=== PATIENT | female | born 1960 | race Caucasian/White ===

== ENCOUNTER 2022-11-04 14:18 | Outpatient (OUT) | payer MEDICAID, SELFPAY ==
--- NOTE | 2022-11-04 14:20 | MM_ITS ---
Patient: ALPESH GANT Exam Date: 11/04/2022 : 1960 Gender:F Ordering : ALEXANDER JETT [facility] Admission #: [id number] Family : Order #: [id number] CLICK HERE TO VIEW EXAM RADIOLOGY REPORT PROCEDURE: MM TOMOSYNTHESIS SCREENING BI COMPARISON: MG MAMM SCREEN 3D DIMITRIOS CAD, 02/05/2021. MG MAMM DX 3D RT CAD, 10/12/2021. MAMMO POST BIOPSY RIGHT, 03/04/2021. MG STEREO CORE NDL W CLIP RT, 03/04/2021. MG MAMM RT DIAG FU, 02/20/2021. INDICATIONS: Screening mammogram Z12.31 Calculator Name NCI Breast Cancer Risk Assessment Tool 5 Year Breast Cancer Risk 4.00% Lifetime Breast Cancer Risk 16.20% Personal Breast Cancer No Personal Ovarian Cancer No Treatments None Family Cancers Mother with breast cancer at age 46; Grandmother-maternal with breast cancer at age 70. LOCATION: [facility] BREAST COMPOSITION: Heterogeneously dense,which may obscure small masses. FINDINGS: DIAGNOSTIC CATEGORY 2--BENIGN FINDING: RIGHT BREAST: Stable architectural distortion, scarring, and biopsy clip along with a few benign appearing scattered calcifications. No significant change has occurred. LEFT BREAST: Stable benign-appearing calcifications and postsurgical scarring lower-outer quadrant. No significant change has occurred. RECOMMENDATIONS: ROUTINE MAMMOGRAM AND CLINICAL EVALUATION IN 12 MONTHS. PLEASE NOTE: A NORMAL MAMMOGRAM DOES NOT EXCLUDE THE POSSIBILITY OF BREAST CANCER. A CLINICALLY SUSPICIOUS PALPABLE LUMP SHOULD BE BIOPSIED. Dictated by: Delvis Almonte M.D. on 11/04/2022 at 15:22 Approved by: Delvis Almonte M.D. on 11/04/2022 at 15:30
== END 2022-11-04 14:19 | disposition home or self-care (01) ==
LOC: MAMMO 14:18
PROVIDERS: PCP Nurse Practitioner Family; Visit Provider Nurse Practitioner Family
DX: Z12.31 Encounter for screening mammogram for malignant neoplasm of breast (principal); Z80.3 Family history of malignant neoplasm of breast
CPT/HCPCS: 77063; 77067

== ENCOUNTER 2023-11-07 13:02 | Outpatient (OUT) | payer MEDICARE, MEDICAID, SELFPAY ==
--- NOTE | 2023-11-07 13:07 | MM_ITS ---
Patient Name: ALPESH GANT MR#: [id number] : 1960 Exam Date: 11/07/2023 Ordering Doctor: ALEXANDER JETT CNP RADIOLOGY REPORT PROCEDURE: MM TOMOSYNTHESIS SCREENING BI COMPARISON: MM TOMOSYNTHESIS SCREENING BI, 11/04/2022. MG MAMM DX 3D RT CAD, 10/12/2021. INDICATIONS: Screening Calculator Name NCI Breast Cancer Risk Assessment Tool 5 Year Breast Cancer Risk 4.10% Lifetime Breast Cancer Risk 15.70% Personal Breast Cancer No Personal Ovarian Cancer No Treatments None Family Cancers Mother with breast cancer at age 46; Grandmother-maternal with breast cancer at age 70. LOCATION: [facility] BREAST COMPOSITION: The breasts are heterogeneously dense,which may obscure small masses. FINDINGS: DIAGNOSTIC CATEGORY 2--BENIGN FINDING. NO CHANGE FROM COMPARISON. Scattered benign-appearing calcifications are present. Scattered benign-appearing lymph nodes are present. RIGHT BREAST: No significant suspicious finding. Stable micro clip marker upper outer quadrant LEFT BREAST: No significant suspicious finding. RECOMMENDATIONS: ROUTINE MAMMOGRAM AND CLINICAL EVALUATION IN 12 MONTHS. PLEASE NOTE: A NORMAL MAMMOGRAM DOES NOT EXCLUDE THE POSSIBILITY OF BREAST CANCER. A CLINICALLY SUSPICIOUS PALPABLE LUMP SHOULD BE BIOPSIED. Dictated by: Bob Pritchard MD on 11/08/2023 at 07:40 Approved by: Bob Pritchard MD on 11/08/2023 at 07:47
== END 2023-11-07 13:03 | disposition home or self-care (01) ==
LOC: MAMMO 13:02
PROVIDERS: PCP Nurse Practitioner Family; Visit Provider Nurse Practitioner Family
DX: Z12.31 Encounter for screening mammogram for malignant neoplasm of breast (principal); Z80.3 Family history of malignant neoplasm of breast
CPT/HCPCS: 77063; 77067

== ENCOUNTER 2023-12-30 12:48 | Outpatient (OUT) | payer MEDICARE, MEDICAID, SELFPAY ==
--- NOTE | 2023-12-30 12:51 | US_ITS ---
The [address] [address] Patient Name: ALPESH GANT MRN: [id number] date: 1960 Sex: F Assigned Patient Location: US Current Patient Location: Accession/Order Number: [id number] Exam Date: 12/30/2023 12:52 Report Date: 12/30/2023 13:45 At the request of: ALEXANDER JETT Procedure: US venous doppler LE RT CLINICAL DATA: Right leg edema PROCEDURE: Right lower extremity venous duplex ultrasound. TECHNIQUE: Arauz-scale, color flow, and waveform spectral analysis was performed of the right lower extremity. FINDINGS: The right common femoral, profunda femoral, femoral, and popliteal veins were compressible. The saphenous vein was compressible. No venous thrombosis was seen. The veins fill with color Doppler. Augmentation was normal. US/US venous doppler LE RT IMPRESSION: 1. No acute lower extremity deep venous thrombosis. 2. No superficial venous thrombosis. Electronically authenticated by: Keiry DUNCAN Date: 12/30/2023 13:45
--- NOTE | 2023-12-30 12:52 | XR_ITS ---
The [address] [address] Patient Name: ALPESH GANT MRN: [id number] date: 1960 Sex: F Assigned Patient Location: Current Patient Location: Accession/Order Number: [id number] Exam Date: 12/30/2023 13:02 Report Date: 01/01/2024 07:02 At the request of: ALEXANDER JETT Procedure: XR ankle RT min 3V PROCEDURE: XR foot RT min 3V, XR ankle RT min 3V HISTORY: right foot pain COMPARISON: None. FINDINGS: BONES:No fracture, acute abnormality, or significant arthropathy. SOFT TISSUES:Soft tissue swelling surrounding the ankle and foot. EFFUSION:None visible. OTHER: Negative. XR/XR ankle RT min 3V IMPRESSION: 1. Soft tissue swelling of uncertain etiology. 2. No acute bone abnormality or significant degenerative changes. Electronically authenticated by: PIERRE VENCES Date: 01/01/2024 07:02
--- NOTE | 2023-12-30 12:52 | XR_ITS ---
The [address] [address] Patient Name: ALPESH GANT MRN: [id number] date: 1960 Sex: F Assigned Patient Location: Current Patient Location: Accession/Order Number: [id number] Exam Date: 12/30/2023 13:02 Report Date: 01/01/2024 07:02 At the request of: ALEXANDER JETT Procedure: XR foot RT min 3V PROCEDURE: XR foot RT min 3V, XR ankle RT min 3V HISTORY: right foot pain COMPARISON: None. FINDINGS: BONES:No fracture, acute abnormality, or significant arthropathy. SOFT TISSUES:Soft tissue swelling surrounding the ankle and foot. EFFUSION:None visible. OTHER: Negative. XR/XR foot RT min 3V IMPRESSION: 1. Soft tissue swelling of uncertain etiology. 2. No acute bone abnormality or significant degenerative changes. Electronically authenticated by: PIERRE VENCES Date: 01/01/2024 07:02
== END 2023-12-30 12:49 | disposition home or self-care (01) ==
LOC: US 12:48
PROVIDERS: PCP Nurse Practitioner Family; Visit Provider Nurse Practitioner Family
DX: R60.9 Edema, unspecified (principal); M25.571 Pain in right ankle and joints of right foot; R60.0 Localized edema
CPT/HCPCS: 73610; 73630; 93971

== ENCOUNTER 2024-11-21 10:14 | Outpatient (OUT) | payer MEDICARE, MEDICAID, SELFPAY ==
--- OUTSIDE RECORDS SUMMARY | 2024-11-21 10:16 | XMS_ITS | Clinical Summary ---
Author Organization [facility] Address [address] [place] [address] Care Team Providers Care Hiv Nurse Name Role Phone Shravan Mccrary MD Primary Care Provider [phone] Renetta Farley MD Unavailable [phone] 1 Allergies No known active allergies Medications methylPREDNISol one (Medrol Dospak) 4 MG tablets TAKE BY MOUTH DIRECTED ON PACKAGE; TAKE ONE-HALF DAILY DOSE BY MOUTH WITH BREAKFAST & TAKE THE OTHER HALF WITH DINNER 3 Active Family History Relation Name Status Comments Father Mother Social History Tobacco Use Types Packs/Day Years Used Date Smoking Tobacco: Every Day Cigarettes Smokeless Tobacco: Never Tobacco Cessation:Ready to Q uit: Not Asked; Counseling Given: Not Answered Alcohol Use Standard Drinks/Week Comments Not Currently 0 (1 standard drink = 0.6 oz pur e alcohol) Comments Unknown Sex and Gender Information Value Date Recorded Sex Assigned at Not on file Legal Sex Female 7:01 PM EDT Gender Identity Not on file Sexual Orientation Not on file Plan of Treatment Health Maintenance Due Date Last Done Comments CT Colonography 1960 Colonoscopy 1960 Colorectal Cancer Screening 1960 FIT-DNA 1960 FIT 1960 FOBT 1960 Sigmoidoscopy 1960 Mammogram 1998 Pneumococcal Vaccine: 65+ Years (1 of 1 - PCV) 009 Influenza Vaccine (#1) 2024 Insurance [facility]ICA[facility] [place] Care Teams Hiv Nurse Relationship Specialty Start Date End Date Shravan Mccrary MD PCP - General Family Medicine 08/25/22 Renetta Farley MD [address] [place] [id number] Referring Physician Family Medicine 08/25/22
--- NOTE | 2024-11-21 10:17 | MM_ITS ---
Patient Name: ALPESH GANT MR#: [id number] : 1960 Exam Date: 11/21/2024 Ordering Doctor: ALEXANDER JETT CNP RADIOLOGY REPORT PROCEDURE: MM TOMOSYNTHESIS SCREENING BI COMPARISON: MM TOMOSYNTHESIS SCREENING BI, 11/07/2023. MM TOMOSYNTHESIS SCREENING BI, 11/04/2022. MG MAMM DX 3D RT CAD, 10/12/2021. MG MAMM SCREEN 3D DIMITRIOS CAD, 02/05/2021. INDICATIONS: screening Calculator Name NCI Breast Cancer Risk Assessment Tool 5 Year Breast Cancer Risk 4.30% Lifetime Breast Cancer Risk 14.70% Personal Breast Cancer No Personal Ovarian Cancer No Treatments None Family Cancers Mother with breast cancer at age 46; Grandmother-maternal with breast cancer at age 70. LOCATION: [facility] BREAST COMPOSITION: The breasts are heterogeneously dense, which may obscure small masses. FINDINGS: RIGHT BREAST: No significant suspicious finding. Benign-appearing calcifications are present. LEFT BREAST: No significant suspicious finding. Benign-appearing calcifications are present. Benign-appearing lymph nodes are noted along chest wall. DIAGNOSTIC CATEGORY 2--BENIGN FINDING. NO CHANGE FROM COMPARISON. RECOMMENDATIONS: ROUTINE MAMMOGRAM AND CLINICAL EVALUATION IN 12 MONTHS. Dictated by: Prabhakar Parra MD on 11/21/2024 at 15:29 Approved by: Prabhakar Parra MD on 11/21/2024 at 15:31
--- OUTSIDE RECORDS SUMMARY | 2024-11-21 12:27 | XMS_ITS | CCD ---
Author Organization [facility] Care Team Providers Care Office Clinician Name Role Phone ALEXANDER JETT Admitting Unavailable RU, DR PIERRE Lomax Consulting Unavailable JOHNIE, ALEXANDER Attending Unavailable JOHNIE, ALEXANDER Primary Care Unavailable JOHNIE, ALEXANDER Consulting Unavailable WEST, DR FAY Merrill Consulting Unavailable JOHNIE, ALEXANDER Admitting Unavailable JOHNIE, ALEXANDER Attending Unavailable JOHNIE, ALEXANDER Primary Care Unavailable JOHNIE, ALEXANDER Consulting Unavailable ROSS, YANELY INOCENCIA Admitting Unavailable ROSS, YANELY PRO Attending Unavailable ROSS, YANELY INOCENCIA Consulting Unavailable JOHNIE, ALEXANDER Primary Care Unavailable JOHNIE, ALEXANDER Admitting Unavailable JOHNIE, ALEXANDER Attending Unavailable ZIEBER, DR PIERRE Lomax Consulting Unavailable JOHNIE, ALEXANDER Primary Care Unavailable JOHNIE, ALEXANDER Consulting Unavailable JOHNIE, ALEXANDER Attending Unavailable JOHNIE, ALEXANDER Primary Care Unavailable WEST, DR FAY Merrill Consulting Unavailable JOHNIE, ALEXANDER Admitting Unavailable JOHNIE, ALEXANDER Consulting Unavailable JOHNIE, ALEXANDER Admitting Unavailable WEST, DR FAY Merrill Consulting Unavailable JOHNIE, ALEXANDER Primary Care Unavailable JOHNIE, ALEXANDER Attending Unavailable JOHNIE, ALEXANDER Consulting Unavailable Problems Active Problems Problem Classification Problem Date Documented Date Episodic/Chronic Osteoarthritis (1 source) Bilateral primary osteoarthritis of knee; Translations: [BILATERAL PRIM OSTEOARTHRITIS KNEE] Onset: 01-21-2022 Chronic Other non-traumatic joint disorders (4 sources) Pain in right knee; Translations: [PAIN IN RIGHT KNEE] Onset: 01-18-2022 Episodic Other non-traumatic joint disorders (1 source) Pain in left knee; Translations: [PAIN IN LEFT KNEE] Onset: 01-21-2022 Episodic Past or Other Problems Problem Classification Problem Date Documented Da te Episodic/Chronic Immunizations and screening for infectious disease (4 sources) Encounter for immunization; Translations: [ENCOUNTER FOR IMMUNIZATION] Onset: 04-07-2021 Episodic Nonmalignant breast conditions (3 sources) Other benign mammary dysplasias of right breast; Translations: [Hypertrophy of breast] Onset: 03-12-2021 Episodic Other screening for suspected conditions (not mental disorders or infectious disease) (9 sources) Other abnormal and inconclusive findings on diagnostic imaging of breast; Translations: [Encounter for screening mammogram for malignant neoplasm of breast] Onset: 02-05-2021 Episodic Residual codes; unclassified (1 source) Family history of malignant neoplasm of breast; Translations: [FAMILY HX MALIG NEOPLASM OF BREAST] Onset: 02-14-2021 Episodic Results Test Name Value Interpretation Reference Range Facil ity XR KNEE DIMITRIOS 4V or >on 2021 XR KNEE DIMITRIOS 4V or > EXAMINATION: XR KNEE DIMITRIOS 4V or > HISTORY: Pain of joint of knee COMPARISON: No relevant comparison available. FINDINGS: RIGHT FINDINGS: BONES: Mild to moderate tricompartmental osteoarthropathy. Moderate narrowing of medial joint space with marginal osteophyte formation SOFT TISSUES: Negative. No visible soft tissue swelling. OTHER: Negative. LEFT FINDINGS: BONES: Mild to moderate tricompartmental osteoarthropathy. Moderate narrowing of medial joint space with marginal osteophyte formation SOFT TISSUES: Negative. No visible soft tissue swelling. OTHER: Negative. IMPRESSION: RIGHT CONCLUSION: Moderate osteoarthritis LEFT CONCLUSION: Moderate osteoarthritis Electronically authenticated by: FAY VILLALPANDO Date: 2022-01-18 12:58 Normal [facility] MG MAMM DX 3D RT CADon 10-12 MG MAMM DX 3D RT CAD Patient: ALPESH GANT Exam Date: 10/12/2021 : 1960 Gender:F Ordering : ALEXANDER JETT [facility] Admission #: [id number] Family : Order #: [id number] CLICK HERE TO VIEW EXAM RADIOLOGY REPORT PROCEDURE: MAMMOGRAM DIAGNOSTIC 3D RIGHT CAD COMPARISON: MAMMO POST BIOPSY RIGHT, 03/04/2021. MG STEREO CORE NDL W CLIP RT, 03/04/2021. INDICATIONS: Mammography abnormal Calculator Name NCI Breast Cancer Risk Assessment Tool 5 Year Breast Cancer Risk 3.90% Lifetime Breast Cancer Risk 16.70% Personal Breast Cancer No Personal Ovarian Cancer No Treatments None Family Cancers Mother with breast cancer at age 46; Grandmother-maternal with breast cancer at age 70. LOCATION: [facility] BREAST COMPOSITION: Heterogeneously dense,which may obscure small masses. FINDINGS: DIAGNOSTIC CATEGORY 2--BENIGN FINDING: RIGHT BREAST: No significant suspicious finding. Scattered benign-appearing calcifications are present. Biopsy marker clip within upper-outer quadrant. No significant change has occurred. RECOMMENDATIONS: ROUTINE MAMMOGRAM AND CLINICAL EVALUATION IN 12 MONTHS. PLEASE NOTE: A NORMAL MAMMOGRAM DOES NOT EXCLUDE THE POSSIBILITY OF BREAST CANCER. A CLINICALLY SUSPICIOUS PALPABLE LUMP SHOULD BE BIOPSIED. Dictated by: Pierre Almonte M.D. on 10/12/2021 at 14:52 Approved by: Pierre Almonte M.D. on 10/12/2021 at 14:54 Normal [facility] MAMMO POST BIOPSY RIGHTon MAMMO POST BIOPSY RIGHT Patient: ALPESH GANT Exam Date: 03/04/2021 : 1960 Gender:F Ordering : ALEXANDER JETT [facility] Admission #: [id number] Family : Order #: [id number] CLICK HERE TO VIEW EXAM This report includes an Addendum and supersedes previous reports for this exam. RADIOLOGY REPORT PROCEDURE: MAMMOGRAM POST BIOPSY IMAGES COMPARISON: MG MAMM RT DIAG FU, 02/20/2021. MG STEREO CORE NDL W CLIP RT, 03/04/2021. INDICATIONS: Abnormal findings on diagnostic imaging of breast BREAST COMPOSITION: Heterogeneously dense,which may obscure small masses. FINDINGS: BIOPSY MARKER: A metallic marker has been placed in the targeted location within the upper-outer quadrant of the right breast. BREAST FINDINGS: Expected post biopsy findings. RECOMMENDATIONS: Dictated by: Pierre Almonte M.D. on 03/04/2021 at 13:46 Approved by: Pierre Almonte M.D. on 03/04/2021 at 13:47 ADDENDUM: FINDINGS: DIAGNOSTIC CATEGORY 3--PROBABLY BENIGN FINDING. THE FOLLOWING FINDING(S) HAS A HIGH PROBABILITY OF A BENIGN ETIOLOGY: RECOMMENDATIONS: SHORT TERM FOLLOW-UP DIAGNOSTIC MAMMOGRAM RIGHT BREAST IN 6 MONTHS. Dictated by: Pierre Almonte M.D. on 03/12/2021 at 16:03 Approved by: Pierre Almonte M.D. on 03/12/2021 at 16:03 Normal [facility] MG STEREO CORE NDL W CLIP RT on 03-04-2021 MG STEREO CORE NDL W CLIP RT Patient: ALPESH GANT Exam Date: 03/04/2021 : 1960 Gender:F Ordering : ALEXANDER JETT [facility] Admission #: [id number] Family : Order #: [id number] CLICK HERE TO VIEW EXAM This report includes an Addendum and supersedes previous reports for this exam. RADIOLOGY REPORT PROCEDURE: MAMMOGRAM STEREO CORE PILLO WITH CLIP RIGHT COMPARISON: MG MAMM RT DIAG FU, 02/20/2021. INDICATIONS: Architectural distortion of breast DESCRIPTION: Following informed consent, digital stereotactic mammographic views were obtained to localize the lesion. Multiple vacuum-assisted core biopsies were obtained. Specimen images were obtained to confirm proper sampling. The location of the biopsy was then marked as indicated below. FINDINGS: RECOMMENDATIONS: SPECIMEN #, LOCATION: 4 core specimens; upper outer quadrant right breast. SPECIMEN IMAGE: Obtained. BIOPSY NEEDLE: 10 gauge Revolve(r) vacuum core biopsy needle. MARKER(S) PLACED: A single metallic marker was placed in the appropriate targeted location. MEDICATION: Buffered 1% lidocaine superficial;1% lidocaine with epinephrine deep. COMPLICATIONS: None. PATHOLOGY / LAB: Pending. CONCLUSION: 1. Technically successful biopsy of the breast lesion. 2. Pathology results are pending. An addendum will be added when pathology results are final. Dictated by: Pierre Almonte M.D. on 03/04/2021 at 13:44 Approved by: Pierre Almonte M.D. on 03/04/2021 at 13:46 ADDENDUM: Final pathologic diagnosis: Breast parenchyma with fibrocystic changes, apocrine metaplasia and chronic inflammation. Focal usual ductal hyperplasia. Microcalcifications. Negative for malignancy. This report was transmitted to the referring physician's office on March 12, 2021, and the office called to confirm receipt. Dictated by: Pierre Almonte M.D. on 03/12/2021 at 16:01 Approved by: Pierre Almonte M.D. on 03/12/2021 at 16:02 [facility] MG MAMM RT DIAG FUon 021 MG MAMM RT DIAG FU Patient: ALPESH GANT Exam Date: 02/20/2021 : 1960 Gender:F Ordering : ALEXANDER JETT [facility] Admission #: [id number] Family : Order #: [id number] CLICK HERE TO VIEW EXAM RADIOLOGY REPORT PROCEDURE: MAMMOGRAM RIGHT DIAGNOSTIC DIGITAL FOLLOW UP, 02/20/2021, 13:49 ULTRASOUND BREAST RIGHT LIMITED, 02/20/2021, 14:25 COMPARISON: MG MAMM SCREEN 3D DIMITRIOS CAD, 02/05/2021. INDICATIONS: Abnormal findings on diagnostic imaging of breast Calculator Name NCI Breast Cancer Risk Assessment Tool 5 Year Breast Cancer Risk 3.90% Lifetime Breast Cancer Risk 16.70% Personal Breast Cancer No Personal Ovarian Cancer No Treatments None Family Cancers Mother with breast cancer at age 46; Grandmother-maternal with breast cancer at age 70. LOCATION: [facility] BREAST COMPOSITION: Heterogeneously dense,which may obscure small masses. FINDINGS: DIAGNOSTIC CATEGORY 4--SUSPICIOUS FOR MALIGNANCY. FINDING DOES NOT EXHIBIT CLASSIC FINDINGS OF BREAST CANCER: Two spot compression views demonstrate a persistent 1.8 cm area architectural distortion upper outer quadrant mid breast. Ultrasound demonstrates at the 11 o'clock position 2.9 cm from the nipple an area irregular fibroglandular density measuring 1.9 x 0.9 cm containing areas of hypoechogenicity. The location corresponds to the mammographic findings. Findings were discussed with the patient and stereotactic breast biopsy was recommended. RECOMMENDATIONS: STEREOTACTIC BREAST BIOPSY: RIGHT BREAST PLEASE NOTE: A NORMAL MAMMOGRAM DOES NOT EXCLUDE THE POSSIBILITY OF BREAST CANCER. A CLINICALLY SUSPICIOUS PALPABLE LUMP SHOULD BE BIOPSIED. Dictated by: Fay Villalpando MD on 02/20/2021 at 14:45 Approved by: Fay Villalpando MD on 02/20/2021 at 14:51 Normal [facility] US BREAST RIGHT LIMITEDon US BREAST RIGHT LIMITED Patient: ALPESH GANT Exam Date: 02/20/2021 : 1960 Gender:F Ordering : ALEXANDER JETT [facility] Admission #: [id number] Family : Order #: [id number] CLICK HERE TO VIEW EXAM RADIOLOGY REPORT PROCEDURE: MAMMOGRAM RIGHT DIAGNOSTIC DIGITAL FOLLOW UP, 02/20/2021, 13:49 ULTRASOUND BREAST RIGHT LIMITED, 02/20/2021, 14:25 COMPARISON: MG MAMM SCREEN 3D DIMITRIOS CAD, 02/05/2021. INDICATIONS: Abnormal findings on diagnostic imaging of breast Calculator Name [facility] Breast Cancer Risk Assessment Tool 5 Year Breast Cancer Risk 3.90% Lifetime Breast Cancer Risk 16.70% Personal Breast Cancer No Personal Ovarian Cancer No Treatments None Family Cancers Mother with breast cancer at age 46; Grandmother-maternal with breast cancer at age 70. LOCATION: [facility] BREAST COMPOSITION: Heterogeneously dense,which may obscure small masses. FINDINGS: DIAGNOSTIC CATEGORY 4--SUSPICIOUS FOR MALIGNANCY. FINDING DOES NOT EXHIBIT CLASSIC FINDINGS OF BREAST CANCER: Two spot compression views demonstrate a persistent 1.8 cm area architectural distortion upper outer quadrant mid breast. Ultrasound demonstrates at the 11 o'clock position 2.9 cm from the nipple an area irregular fibroglandular density measuring 1.9 x 0.9 cm containing areas of hypoechogenicity. The location corresponds to the mammographic findings. Findings were discussed with the patient and stereotactic breast biopsy was recommended. RECOMMENDATIONS: STEREOTACTIC BREAST BIOPSY: RIGHT BREAST PLEASE NOTE: A NORMAL MAMMOGRAM DOES NOT EXCLUDE THE POSSIBILITY OF BREAST CANCER. A CLINICALLY SUSPICIOUS PALPABLE LUMP SHOULD BE BIOPSIED. Dictated by: Fay Villalpando MD on 02/20/2021 at 14:45 Approved by: Fay Villalpando MD on 02/20/2021 at 14:51 Normal [facility] MG MAMM SCREEN 3D DIMITRIOS CADon 02-05-2021 MG MAMM SCREEN 3D DIMITRIOS CAD Patient: ALPESH GANT Exam Date: 02/05/2021 : 1960 Gender:F Ordering : ALEXANDER JETT [facility] Admission #: [id number] Family : Order #: [id number] CLICK HERE TO VIEW EXAM RADIOLOGY REPORT PROCEDURE: MAMMOGRAM SCREENING 3D BILATERAL CAD COMPARISON: None. INDICATIONS: Screening mammography Calculator Name NCI Breast Cancer Risk Assessment Tool 5 Year Breast Cancer Risk 3.90% Lifetime Breast Cancer Risk 16.70% Personal Breast Cancer No Personal Ovarian Cancer No Treatments None Family Cancers Mother with breast cancer at age 46; Grandmother-maternal with breast cancer at age 70. LOCATION: [facility] BREAST COMPOSITION: Heterogeneously dense,which may obscure small masses. FINDINGS: DIAGNOSTIC CATEGORY 0--INCOMPLETE ASSESSMENT: NEED ADDITIONAL IMAGING EVALUATION. Scattered benign-appearing calcifications are present. Scattered benign-appearing lymph nodes are present. RIGHT BREAST: Area of architectural distortion identified in the quadrant of the right breast on tomographic images, MLO slice 43 and CC slice 37. Spot imaging and ultrasound follow-up is recommended LEFT BREAST: No significant suspicious finding. RECOMMENDATIONS: ADDITIONAL MAMMOGRAPHIC VIEWS REQUIRED: RIGHT BREAST - spot compression ULTRASOUND: RIGHT BREAST PLEASE NOTE: A NORMAL MAMMOGRAM DOES NOT EXCLUDE THE POSSIBILITY OF BREAST CANCER. A CLINICALLY SUSPICIOUS PALPABLE LUMP SHOULD BE BIOPSIED. Dictated by: Fay Villalpando MD on 02/06/2021 at 10:26 Approved by: Fay Villalpando MD on 02/06/2021 at 10:30 Normal [facility] Encounters Encounter Date Encounter Type Care Provider Facility Start: 01-18-2022 End: 01-19-[address] FAY VILLALPANDO Facility:[facility] Start: 10-12-2021 End: 10-13-2021 ambulatory ALEXANDER JETT Facility:[facility] Start: 04-07-2021 End: 04-08-2021 ambulatory YANELY BENAVIDEZ Facility:[facility] Start: 03-04-2021 End: 03-04-2021 ambulatory ALEXANDER JETT Facility:[facility] Start: 02-20-2021 End: 02-21-2021 ambulatory ALEXANDER JETT Facility:[facility] Start: 02-05-2021 End: 02-06-2021 ambulatory ALEXANDER JETT Facility:[facility] Payers Date Payer Category Payer Self-pay [id number] 1961 Unknown [id number] 1960 Unknown [id number] 2.16.84 [id number] 1960 Unknown [id number] 1960 Unknown [id number] 1960 Unknown [id number] 2.16.84 [id number] 1960 Unknown [id number] 2.16.84 [id number] Unknown [id number] 2.16.84 [id number] Summary Purpose Family History No Family History Records Found Advance Directives No Advanced Directives Records Found Additional Source Comments INFORMATION SOURCE (unrecogn ized section and content) DATE CREATED AUTHOR 01/22/2022 [employer] [facility] FOR RECORDS PERTAINING TO PATIENTS WHO ARE OR HAVE BEEN ENROLLED IN A CHEMICAL DEPENDENCY/SUBSTANCEABUSE PROGRAM, SOME INFORMATION MAY BE OMITTED. This clinical summary was aggregated from multiple sources. Caution should be exercised in using it in the provision of clinical care. This summary normalizes information from multiple sources, and as a consequence, information in this document may materially change the coding, format and clinical context of patient data. In addition, data may be omitted in some cases. CLINICAL DECISIONS SHOULD BE BASED ON THE PRIMARY CLINICAL RECORDS. [facility] [employer] [facility]. provides no warranty or guarantee of the accuracy or completeness of information in this document.
== END 2024-11-21 10:15 | disposition home or self-care (01) ==
LOC: MAMMO 10:14
PROVIDERS: PCP Nurse Practitioner Family; Visit Provider Nurse Practitioner Family
DX: Z12.31 Encounter for screening mammogram for malignant neoplasm of breast (principal); Z80.3 Family history of malignant neoplasm of breast
CPT/HCPCS: 77063; 77067